=== PATIENT | female | born 1965 | race Caucasian/White ===

== ENCOUNTER 2017-08-24 11:01 | Emergency (ER) | payer OTHER ==
--- NOTE | 2017-08-24 11:41 | EDM.PDOC ---
ED HPI GENERAL MEDICAL PROBLEM - General Chief Complaint: Lower Extremity Injury/Pain Stated Complaint: FOOT INFECTED Time Seen by Provider: 08/24/17 11:30 Source of Information: Reports: Patient History Limitations: Reports: No Limitations - History of Present Illness INITIAL COMMENTS - FREE TEXT/NARRATIVE: This is a 52-year-old female that comes in for right foot pain after stepping on something sharp in the [place] last week. She did not see what the object was, did not pull anything out of the foot, she just knows it felt sharp. There are two main areas of pain/scabbing on the proximal 3rd and 4th toes. She is worried it may have been glass. She states that at first the symptoms weren't that bad but as the week went on there was a gradual worsening of redness, swelling, and pain that has now extended to the pads of the feet and top of the foot that make walking/bearing weight difficult. No purulent discharge per patient. Right now pain is 8/10. She reports nausea, fever, chills, tingling in the foot. Sensation in foot is still intact. No vomiting or other symptoms. She is up to date on her tetanus shot. She tried ice and ibuprofen at home without relief. She states she just finished metronidazole for bronchitis yesterday. No other symptoms as this time. Pt has history of Crohn's and HTN. PCP is Dr. Keny Bell. Treatments [employer]: Reports: NSAIDS Right Feet Pain Score (Numeric/FACES): 10 - Related Data Allergies Allergy/AdvReac Type Severity Reaction Status Date / Time meperidine [From Demerol] AdvReac Vomiting Verified 01/31/17 08:10 nabumetone [From Relafen] AdvReac Stomach Verified 01/31/17 08:10 Upset Home Meds: Home Meds Doxycycline [Vibramycin] 100 mg PO BID 10 Days #20 cap 08/24/17 [Rx] Hydrochlorothiazide 12.5 mg PO DAILY 08/24/17 [History] Isosorbide Mononitrate [Imdur] 60 mg PO DAILY 08/24/17 [History] Pantoprazole Sodium [Protonix] 40 mg PO DAILY 08/24/17 [History] Temazepam [Restoril] 15 mg PO DAILY 08/24/17 [History] Review of Systems - Review of Systems Review Of Systems: See Below Constitutional: Reports: Chills, Fever Eyes: Reports: No Symptoms Respiratory: Reports: Cough (recent bronchitis). Denies: Shortness of Breath, Wheezing Cardiovascular: Reports: No Symptoms. Denies: Chest Pain, Palpitations Musculoskeletal: Reports: Foot Pain (10/17) Skin: Reports: Erythema, Wound (plantar aspect of 3rd and 4th toes, 1/2 cm scabbing), Lesions (plantar aspect of 3rd and 4th toes, 1/2 cm scabbing) Neurological: Reports: Tingling (in right foot), Difficulty Walking (difficult to put weight on), Gait Disturbance. Denies: Numbness Psychiatric: Reports: No Symptoms ED EXAM, GENERAL - Physical Exam Exam: See Below Exam Limited By: No Limitations General Appearance: Alert, WD/WN, No Apparent Distress Head: Atraumatic, Normocephalic Respiratory/Chest: No Respiratory Distress, Lungs Clear, Normal Breath Sounds, No Accessory Muscle Use, Chest Non-Tender Cardiovascular: Normal Peripheral Pulses, Regular Rate, Rhythm, No Edema, No Gallop, No JVD, No Murmur, No Rub Peripheral Pulses: 3+: Posterior Tibial (L), Posterior Tibial (R), Dorsalis Pedis (L), Dorsalis Pedis (R) Extremities: No Pedal Edema, Normal Capillary Refill, Limited Range of Motion ( difficulty moving right toes), Increased Warmth (right top of foot and toes), Redness, Other (TTP right foot and 3rd and 5th toe, ) Neurological: Alert, Oriented, CN II-XII Intact, Normal Cognition, Normal Reflexes, No Motor/Sensory Deficits, Abnormal Gait Psychiatric: Normal Affect, Normal Mood Skin Exam: Warm, Dry, Erythema (from the wounds of the plantar aspect of the 3rd and 4th phalanges to the dorsal and plantar aspects of the feet), Increased Warmth, Wound/Incision (plantar aspect of the 3rd and 4th phalanges, 1/2 cm scabbing), Other (mild swelling) Course - Vital Signs Last Recorded V/S: Last Vital Signs Temp 98.2 F 08/24/17 11:09 Pulse 82 08/24/17 11:09 Resp 16 08/24/17 11:09 BP 145/98 H 08/24/17 11:09 Pulse Ox 99 08/24/17 11:09 - Orders/Labs/Meds Orders: Active Orders 24 hr Category Date Time Status Foot Comp Min 3V Rt [CR] Stat Exams 08/24/17 11:29 Taken Durable Medical Equipment for Discharge [DME for Oth 08/24/17 12:31 Ordered Discharge] [COMM] Stat Meds: Medications Discontinued Medications Generic Name Dose Route Start Last Admin Trade Name Rosi PRN Reason Stop Dose Admin Ondansetron HCl 4 mg 08/24/17 12:16 08/24/17 12:30 Zofran Odt PO 08/24/17 12:17 4 mg ONETIME ONE Administration - Re-Assessments/Exams Free Text/Narrative Re-Assessment/Exam: 08/24/17 12:00 Xray ordered to r/o foreign body Departure - Departure Time of Disposition: 12:20 Disposition: Home, Self-Care 01 Condition: Good Clinical Impression: Right foot infection, Puncture wound of right foot without foreign body - Discharge Information Prescriptions: Doxycycline [Vibramycin] 100 mg PO BID 10 Days #20 cap Instructions: Puncture Wound, [id number] Referrals: Inder Mars MD [Primary Care Provider] - Forms: ED Department Discharge Additional Instructions: Take Prescribed Doxycycline 100mg twice per day for 10 days for complete treatment. Do not take with milk- it may decrease the effectiveness. Keep area clean and dry, rest, over the counter ibuprofen for pain relief. Use crutches to help keep weight off of foot if causes pain to do so. If symptoms worsen or infection does not improve, return to ED. - My Orders Last 24 Hours: My Active Orders 08/24/17 11:29 Foot Comp Min 3V Rt [CR] Stat 08/24/17 12:31 Durable Medical Equipment for Discharge [DME for Discharge] [COMM] Stat - Assessment/Plan Last 24 Hours: My Active Orders 08/24/17 11:29 Foot Comp Min 3V Rt [CR] Stat 08/24/17 12:31 Durable Medical Equipment for Discharge [DME for Discharge] [COMM] Stat
[2017-08-24] MEDS ORDERED: Ondansetron 4 MG Tab.DIS PO ONE (12:16)
--- NOTE | 2017-08-25 08:26 | CR ---
Right foot: Four views of the right foot were obtained. Comparison: No previous exam. Joint spaces are preserved. No fracture, dislocation or other bony abnormality is seen. No opaque foreign object is seen. Impression: 1. No abnormality is appreciated on right foot exam. Diagnostic code #1
== END 2017-08-24 12:50 | disposition home or self-care (01) ==
LOC: JD.ED 11:01
DX: S91.134A Puncture wound without foreign body of right lesser toe(s) without damage to nail, initial encounter (principal); L08.9 Local infection of the skin and subcutaneous tissue, unspecified; W26.9XXA Contact with unspecified sharp object(s), initial encounter; Y92.828 Other wilderness area as the place of occurrence of the external cause; Z88.8 Allergy status to other drugs, medicaments and biological substances
CPT/HCPCS: 73630; 99283; A9270

== ENCOUNTER 2020-01-02 14:25 | Day surgery (SDC) | payer OTHER ==
--- NOTE | 2020-01-02 15:49 | EDM.PDOC ---
ED HPI GENERAL MEDICAL PROBLEM - General Chief Complaint: ENT Problem Stated Complaint: FB IN THROAT Time Seen by Provider: 01/02/20 14:39 Source of Information: Reports: Patient, RN Notes Reviewed History Limitations: Reports: No Limitations - History of Present Illness INITIAL COMMENTS - FREE TEXT/NARRATIVE: Patient is a 54-year-old female presenting to the emergency department with concerns that she could have an invisible line retainer lodged in her esophagus. He states that this morning she woke up and her lower retainer was missing. She has a feeling of a foreign body stuck in her esophagus near the level of the suprasternal notch. Her voice has been raspy since this morning as well. She has missing a number of teeth on the bottom, therefore her retainer is not a full size retainer. Is only approximately 1-1/2 to 2 inches long. She has a history of vocal cord dysplasia - Related Data Allergies Allergy/AdvReac Type Severity Reaction Status Date / Time meperidine [From Demerol] AdvReac Vomiting Verified 01/02/20 14:38 nabumetone [From Relafen] AdvReac Stomach Verified 01/02/20 14:38 Upset Home Meds: Home Meds Pantoprazole Sodium [Protonix] 40 mg PO DAILY 08/24/17 [History] hydroCHLOROthiazide [Hydrochlorothiazide] 25 mg PO DAILY 08/24/17 [History] Hydrocodone/Acetaminophen [Hydrocodone-Acetamin 5-325 mg] 1 each PO Q4HR PRN 01/02/20 [History] Propranolol HCl [Inderal Xl] 120 mg PO DAILY 01/02/20 [History] Past Medical History Cardiovascular History: Reports: Hypertension Gastrointestinal History: Reports: Diverticulosis, Other (See Below) Other Gastrointestinal History: crohns, gangrene - Past Surgical History HEENT Surgical History: Reports: Other (See Below) Other HEENT Surgeries/Procedures: Dysplasia of the Vocal Cords with surgeries GI Surgical History: Reports: Other (See Below) Other GI Surgeries/Procedures: Multiple abdominal surgeries due to Crohn's Social & Family History - Family History Family Medical History: Noncontributory - Tobacco Use Tobacco Use Status *Q: Current Every Day Tobacco User Years of Tobacco use: 20 Packs/Tins Daily: 1 - Caffeine Use Caffeine Use: Reports: None - Recreational Drug Use Recreational Drug Use: No ED ROS ENT - Review of Systems Review Of Systems: Comprehensive ROS is negative, except as noted in HPI. ED EXAM, ENT - Physical Exam Exam: See Below Exam Limited By: No Limitations General Appearance: Alert, WD/WN, No Apparent Distress Respiratory/Chest: No Respiratory Distress, Lungs Clear, Normal Breath Sounds, No Accessory Muscle Use, Chest Non-Tender Cardiovascular: Normal Peripheral Pulses, Regular Rate, Rhythm, No Edema, No Ga llop, No JVD, No Murmur, No Rub GI/Abdominal: Normal Bowel Sounds, Soft, Non-Tender, No Organomegaly, No Distention, No Abnormal Bruit, No Mass Neurological: Alert, Oriented, CN II-XII Intact, Normal Cognition, Normal Gait, Normal Reflexes, No Motor/Sensory Deficits Psychiatric: Normal Affect, Normal Mood Skin: Warm, Dry, Intact, Normal Color, No Rash Course - Vital Signs Last Recorded V/S: Last Vital Signs Temp 98.2 F 01/02/20 18:33 Pulse 67 01/02/20 18:33 Resp 19 01/02/20 18:33 BP 126/75 01/02/20 18:33 Pulse Ox 98 01/02/20 18:33 - Orders/Labs/Meds Labs: Laboratory Tests 01/02/20 01/02/20 Range/Units 15:55 15:55 SARS-CoV-2 RNA (NASEEM) Negative (NEGATIVE) SARS CoV-2 RNA Rapid NASEEM Negative (NEGATIVE) Meds: Medications Discontinued Medications Generic Name Dose Route Start Last Admin Trade Name Freq PRN Reason Stop Dose Admin Albuterol Confirm 01/02/20 17:10 Proventil Hfa Administered 01/02/20 17:11 Dose 6.7 gm INH .STK-MED ONE Albuterol 2.5 mg 01/02/20 17:50 Proventil Neb Soln NEB ONETIME PRN COPD Dexamethasone Confirm 01/02/20 16:29 Dexamethasone Administered 01/02/20 16:30 Dose 4 mg .ROUTE .STK-MED ONE Dexamethasone Confirm 01/02/20 16:31 Dexamethasone Administered 01/02/20 16:32 Dose 4 mg .ROUTE .STK-MED ONE Ephedrine Sulfate 5 mg 01/02/20 16:27 Ephedrine Sulfate IVPUSH ASDIRECTED PRN Hypotension Fentanyl 50 mcg 01/02/20 16:27 Sublimaze IVPUSH Q5M PRN Pain Glycopyrrolate Confirm 01/02/20 17:22 Robinul Administered 01/02/20 17:23 Dose 0.2 mg .ROUTE .STK-MED ONE Hydromorphone HCl Confirm 01/02/20 16:30 Dilaudid Administered 01/02/20 16:31 Dose 1 mg .ROUTE .STK-MED ONE Lidocaine HCl Confirm 01/02/20 16:29 Xylocaine-Mpf 1% Administered 01/02/20 16:30 Dose 4 mls @ as directed .ROUTE .STK-MED ONE Lactated Ringer's Confirm 01/02/20 16:29 Ringers, Lactated Administered 01/02/20 16:30 Dose 1,000 mls @ as directed .ROUTE .STK-MED ONE Midazolam HCl 2 mg 01/02/20 16:27 Versed 1 Mg/Ml IVPUSH ONETIME PRN Sedation Miscellaneous Medication 0 mg 01/02/20 16:27 Phenylephrine 1 Mg/10 Ml-Ns IVPUSH 01/02/20 16:28 ONETIME ONE Ondansetron HCl 4 mg 01/02/20 16:27 Zofran IVPUSH ONETIME PRN Nausea/Vomiting Propofol Confirm 01/02/20 16:30 Diprivan 20 Ml Administered 01/02/20 16:31 Dose 200 mg .ROUTE .STK-MED ONE - Re-Assessments/Exams Free Text/Narrative Re-Assessment/Exam: Patient is a 54-year-old female presenting to the emergency department with complaints of a sensation of a foreign body stuck in her throat. She states that when she woke this morning, she was missing her lower invisible line retainer. She looked throughout her bed and was not able to locate it. She is also had a raspy voice since this morning as well. Called and spoke with the general surgeon on-call, Dr. Russo. She recommended x-ray to see if we can visualize it, however it is unlikely since it is not radiopaque. I have ordered a soft tissue neck x-ray. Will speak with Dr. Russo once this is complete. 01/02/20 0891 X-ray of the soft tissue neck shows no obvious foreign body. Spoke with Dr. Russo. She will take the patient for endoscopy. Discussed this with patient she is agreement. OR crew will be called in. Departure - Departure Time of Disposition: 15:45 Disposition: DC/Tfer to [facility] Condition: Good Clinical Impression: Esophageal foreign body Qualifiers: Encounter type: initial encounter Qualified Code(s): T18.108A - Unspecified foreign body in esophagus causing other injury, initial encounter - Discharge Information Sepsis Event Note (ED) - Evaluation Sepsis Screening Result: No Definite Risk
--- NOTE | 2020-01-02 16:15 | PCM.PREANE ---
Preanesthetic Assessment - Procedure Proposed Procedure: EGD: Foreign body removal (Invisible line retainer) - Anesthesia/Transfusion/Family Hx Anesthesia History: Prior Anesthesia Without Reaction Family History of Anesthesia Reaction: No Transfusion History: No Prior Transfusion(s) Intubation History: Unknown - Review of Systems General: No Symptoms Pulmonary: No Symptoms (Dysplasia of vocal cords with history of surgeries.(Last surgery in October 2019) Smoker: 1ppd times 20 years) Cardiovascular: No Symptoms (HTN) Gastrointestinal: No Symptoms (GERD, history of crohn's disease) Neurological: Headache (Migraines) Other: Reports: None, Easy Bruising, Sinus Problem - Physical Assessment NPO Status Date: 01/02/20 NPO Status Time: 11:00 Vital Signs: Last Vital Signs Temp 36.6 C 01/02/20 14:35 Pulse 64 01/02/20 14:35 Resp 16 01/02/20 14:35 BP 128/98 H 01/02/20 14:35 Pulse Ox 98 01/02/20 14:35 Height: 1.68 m Weight: 61.235 kg ASA Class: 2E Mental Status: Alert & Oriented x3 Airway Class: Mallampati = 2 Dentition: Reports: Normal Dentition, [place](s), Missing Tooth/Teeth, Caries Thyro-Mental Finger Breadths: 3 Mouth Opening Finger Breadths: 3 ROM/Head Extension: Full Lungs: Clear to Auscultation, Normal Respiratory Effort Cardiovascular: Regular Rate, Regular Rhythm, No Murmurs - Lab Values: All labs reviewed and noted and within acceptable ranges to proceed with s cheduled procedure. - Imaging/EKG Impressions: EKG: SR rate=54, Probable left atrial enlargement, Minimal ST depression anterolateral leads - Allergies Allergies/Adverse Reactions: Allergies Allergy/AdvReac Type Severity Reaction Status Date / Time meperidine [From Demerol] AdvReac Vomiting Verified 01/02/20 14:38 nabumetone [From Relafen] AdvReac Stomach Verified 01/02/20 14:38 Upset - Anesthesia Plan Pre-Op Medication Ordered: Beta Jacob Beta Jacob: Propranolol Med Last Dose Date: 01/01/20 Med Last Dose Time: 22:30 - Acknowledgements Anesthesia Type Planned: General Anesthesia Pt an Appropriate Candidate for the Planned Anesthesia: Yes Alternatives and Risks of Anesthesia Discussed w Pt/Guardian: Yes Pt/Guardian Understands and Agrees with Anesthesia Plan: Yes PreAnesthesia Questionnaire Cardiovascular History: Reports: Hypertension Gastrointestinal History: Reports: Diverticulosis, Other (See Below) Other Gastrointestinal History: crohns, gangrene - Past Surgical History HEENT Surgical History: Reports: Other (See Below) Other HEENT Surgeries/Procedures: Dysplasia of the Vocal Cords with surgeries GI Surgical History: Reports: Other (See Below) Other GI Surgeries/Procedures: Multiple abdominal surgeries due to Crohn's - SUBSTANCE USE Tobacco Use Status *Q: Current Every Day Tobacco User Recreational Drug Use History: No - HOME MEDS Home Medications: Home Meds Pantoprazole Sodium [Protonix] 40 mg PO DAILY 08/24/17 [History] hydroCHLOROthiazide [Hydrochlorothiazide] 25 mg PO DAILY 08/24/17 [History] Hydrocodone/Acetaminophen [Hydrocodone-Acetamin 5-325 mg] 1 each PO Q4HR PRN 01/02/20 [History] Propranolol HCl [Inderal Xl] 120 mg PO DAILY 01/02/20 [History]
[2020-01-02] MEDS ORDERED: Midazolam 1 MG/ML 2 ML SDV IVPUSH PRN (16:27)
[2020-01-02] MEDS ORDERED: fentaNYL 100 MCG/2 ML SDV IVPUSH PRN (16:27)
[2020-01-02] MEDS ORDERED: Ondansetron 4 MG/2 ML SDV IVPUSH PRN (16:27)
[2020-01-02] MEDS ORDERED: ePHEDrine 50 MG/ML SDV IVPUSH PRN (16:27)
[2020-01-02] MEDS ORDERED: Lidocaine 1% 4 ML ONE (16:29)
[2020-01-02] MEDS ORDERED: Succinylcholine/Sod PF 100 MG/5 ML SYRINGE IV ONE (16:29)
[2020-01-02] MEDS ORDERED: Dexamethasone 4 MG/ML SDV ONE ×2 (16:29→16:31)
[2020-01-02] MEDS ORDERED: Lactated Ringers 1,000 ML ONE (16:29)
[2020-01-02] MEDS ORDERED: Propofol 200 MG/20 ML SDV ONE (16:30)
[2020-01-02] MEDS ORDERED: HYDROmorphone 1 MG/ML Syringe ONE (16:30)
--- NOTE | 2020-01-02 16:32 | PCM.HP.2 ---
H&P History of Present Illness - General Date of Service: 01/02/20 Source of Information: Patient, Provider History Limitations: Reports: No Limitations - History of Present Illness Initial Comments - Free Text/Narative: The patient is a 54 y/o lady who presents with globus sensation. She thinks she swallowed her dental retainer, which is approximately 5cm long and semicircular clear plastic. She reports placing it in her mouth last night, but it was gone this morning when she awoke. She has discomfort in the throat when she tries to swallow. She also has a raspy voice today. She has not had difficulty controlling and swallowing her secretions, and was able to eat a piece of lennon this morning. She denies any history of dysphagia. She previously has had treatments for vocal cord dysplasia. Neck x-ray was obtained and no foreign body was seen. - Related Data Allergies/Adverse Reactions: Allergies Allergy/AdvReac Type Severity Reaction Status Date / Time meperidine [From Demerol] AdvReac Vomiting Verified 01/02/20 14:38 nabumetone [From Relafen] AdvReac Stomach Verified 01/02/20 14:38 Upset Home Medications: Home Meds Pantoprazole Sodium [Protonix] 40 mg PO DAILY 08/24/17 [History] hydroCHLOROthiazide [Hydrochlorothiazide] 25 mg PO DAILY 08/24/17 [History] Hydrocodone/Acetaminophen [Hydrocodone-Acetamin 5-325 mg] 1 each PO Q4HR PRN 01/02/20 [History] Propranolol HCl [Inderal Xl] 120 mg PO DAILY 01/02/20 [History] Past Medical History Cardiovascular History: Reports: Hypertension Gastrointestinal History: Reports: Diverticulosis, Other (See Below) Other Gastrointestinal History: crohns, gangrene - Past Surgical History HEENT Surgical History: Reports: Other (See Below) Other HEENT Surgeries/Procedures: Dysplasia of the Vocal Cords with surgeries GI Surgical History: Reports: Other (See Below) Other GI Surgeries/Procedures: Multiple abdominal surgeries due to Crohn's Female Surgical History: Reports: Hysterectomy, Salpingo-Oophorectomy Social & Family History - Family History Cardiac: Denies: High Cholesterol, Hypertension, [place] Neurological: Denies: CVA Endocrine/Metabolic: Denies: Diabetes, type II Oncologic: Reports: Lung - Tobacco Use Tobacco Use Status *Q: Current Every Day Tobacco User Years of Tobacco use: 20 Packs/Tins Daily: 1 - Caffeine Use Caffeine Use: Reports: None - Recreational Drug Use Recreational Drug Use: No H&P Review of Systems - Review of Systems: Review Of Systems: See Below General: Reports: No Symptoms HEENT: Reports: Other (globus) Pulmonary: Reports: No Symptoms Cardiovascular: Reports: No Symptoms Gastrointestinal: Reports: No Symptoms Genitourinary: Reports: No Symptoms Musculoskeletal: Reports: No Symptoms Skin: Reports: No Symptoms Neurological: Reports: No Symptoms Hematologic/Lymphatic: Reports: No Symptoms Exam - Exam Exam: See Below - Vital Signs Vital Signs: Last Vital Signs Temp 36.6 C 01/02/20 14:35 Pulse 64 01/02/20 14:35 Resp 16 01/02/20 14:35 BP 128/98 H 01/02/20 14:35 Pulse Ox 98 01/02/20 14:35 Weight: 61.235 kg - Exam Quality Assessment: No: Supplemental Oxygen General: Alert, Oriented HEENT: Conjunctiva Clear, EOMI Neck: Supple Lungs: Normal Respiratory Effort Cardiovascular: Regular Rate, Regular Rhythm GI/Abdominal Exam: Soft, Non-Tender, No Distention Extremities: Normal Inspection, No Pedal Edema Peripheral Pulses: 2+: Dorsalis Pedis (L), Dorsalis Pedis (R) Skin: Warm, Dry, Intact Neurological: Cranial Nerves Intact Neuro Extensive - Mental Status: Normal Mood/Affect - Patient Data Lab Results Last 24 hrs: Laboratory Results - last 24 hr 01/02/20 Range/Units 15:55 SARS CoV-2 RNA Rapid NASEEM Negative (NEGATIVE) Sepsis Event Note - Evaluation Sepsis Screening Result: No Definite Risk - Focused Exam Vital Signs: Vital Signs Temp Pulse Resp BP Pulse Ox 01/02/20 14:35 36.6 C 64 16 128/98 H 98 *Q Meaningful Use (ADM) - VTE Risk Assess *Q Each Risk Factor Represents 1 Point: Age 41 - 59 years Total Score 1 Point Risk Factors: 1 - Problem List (1) Esophageal foreign body SNOMED Code(s): 79944262 ICD Code: T18.108A - UNSP FOREIGN BODY IN ESOPHAGUS CAUSING OTH INJURY, INIT Status: Acute Current Visit: Yes Problem List Initiated/Reviewed/Updated: Yes Orders Last 24hrs: Active Orders 24 hr Category Date Time Status EKG Documentation Completion [RC] STAT Care 01/02/20 16:15 Active Neck Soft Tissue [CR] Stat Exams 01/02/20 15:01 Taken CORONAVIRUS COVID-19 NASEEM [MOLEC] Routine Lab 01/02/20 15:55 Received Schedule Procedure [COMM] Stat Oth 01/02/20 16:22 Ordered Assessment/Plan Comment:: 54 y/o lady who presents with globus sensation and possible foreign body in the esophagus. - will proceed with EGD and possible intervention. Discussed possibility of not finding the object, and also the risk of perforation. Her written consent was obtained - NPO - COVID test completed Sadia Colon MD General surgery - Mortality Measure Prognosis:: Good
[2020-01-02] MEDS ORDERED: Albuterol 6.7 GM Inhaler INH ONE (17:10)
[2020-01-02] MEDS ORDERED: Glycopyrrolate 0.2 MG/ML SDV ONE (17:22)
--- NOTE | 2020-01-02 17:41 | PCM.OPNOTE ---
- General Post-Op/Procedure Note Date of Surgery/Procedure: 01/02/20 Operative Procedure(s): EGD Findings: 1. No foreign body 2. Irregular GE 3. Gastritis 4. Hiatal hernia 5. Duodenitis Pre Op Diagnosis: Globus with esophageal foreign body Post-Op Diagnosis: Globus Anesthesia Technique: General ET Tube Primary Surgeon: Sadia Colon Anesthesia Provider: Saadia Hunt Pathology: 1. Antral biopsy 2. GE junction biopsy Fluid Replacement, Intraop: 500 Complications: None apparent Condition: Good
--- NOTE | 2020-01-02 17:46 | PCM.PRNOTE ---
- Free Text/Narrative Note: Operative Report Date of procedure: January 02, 2020 Preoperative diagnosis: Globus with esophageal foreign body Postoperative diagnosis: Globus Surgeon: Sadia Colon M.D. Procedure: EGD Anesthesia: General ET Ash Handler: Saadia Hunt CRNA IV fluids: 500mL Estimated blood loss: 0 mL Findings: 1. No foreign body 2. Irregular GE 3. Gastritis 4. Hiatal hernia 5. Duodenitis Specimens: 1. Antral biopsy 2. GE junction biopsies Indication: The patient is a 54 -year-old lady who presented with globus sensation and fear that she had swallowed her dental retainer. The patient's main complaint was the globus sensation and discomfort with swallowing. The patient was consented for an EGD with intervention. Risk of bleeding and perforation were discussed. The patient's consent was obtained Description of the procedure: The patient was taken to the endoscopy suite and placed on hemodynamic monitoring. The nurse batch mixer operator induced General anesthesia and she was intubated without difficulty. A bite block was placed. The patient was positioned in the left lateral decubitus position. A timeout was performed. The endoscope was gently placed into the mouth to the back of the pharynx and introduced into the esophagus. The scope was gently advanced under direct visualization down to the level of the lower esophageal sphincter. The stomach was then entered. Normal rugal folds were noted. The scope was advanced into the antrum. We noted linear and patchy erythema in the antrum and patchy erythema with friability in the body of the stomach. The pylorus was then entered and the first and second portion of the duodenum was inspected. We did note some duodenitis in the bulb of the duodenum. There were no ulcerations in the duodenum. We did find patchy erythema and superficial erosion in the duodenal bulb. The scope was withdrawn to the antrum and biopsies were taken with a cold biopsy forceps for H. pylori. The scope was then retroflexed in the cardia and fundus were investigated. There appeared to be a large hiatal hernia. No other abnormalities were noted. The scope was then withdrawn while inspecting the esophagus. There was a very irregular GE junction with 2-3 tongues of salmon colored mucosa extending 1-2cm into the esophagus. There was one 4mm squamous island noted. The GE junction was biopsied in four quadrants with a cold biopsy forceps. The esophagus was inspected during withdrawal and there was no erythema or evidence of foreign body. The procedure was terminated. the patient tolerated the procedure well without any evidence of complications. She was extubated and transported to PACU in stable position Sadia Colon MD General Surgery
[2020-01-02] MEDS ORDERED: Albuterol 0.083% 2.5 MG/3 ML Neb Soln NEB PRN (17:50)
--- NOTE | 2020-01-02 17:50 | PCM.POSTAN ---
POST ANESTHESIA ASSESSMENT - MENTAL STATUS Mental Status: Alert - VITAL SIGNS Vital Signs: Last Vital Signs Temp 36.8 C 01/02/20 17:39 Pulse 79 01/02/20 17:39 Resp 14 01/02/20 17:39 BP 113/48 L 01/02/20 17:39 Pulse Ox 98 01/02/20 17:39 - RESPIRATORY Respiratory Status: Respiratory Rate WNL, Airway Patent, O2 Saturation Stable, Supplemental Oxygen - CARDIOVASCULAR CV Status: Pulse Rate WNL, Blood Pressure Stable - GASTROINTESTINAL GI Status: No Symptoms - POST OP HYDRATION Hydration Status: Adequate & Stable
--- NOTE | 2020-01-02 17:53 | PCM48HPAN ---
Post Anesthesia Note - EVALUATION WITHIN 48HRS OF ANESTHETIC Vital Signs in Normal Range: Yes Patient Participated in Evaluation: Yes Respiratory Function Stable: Yes Airway Patent: Yes Cardiovascular Function Stable: Yes Hydration Status Stable: Yes Pain Control Satisfactory: Yes Nausea and Vomiting Control Satisfactory: Yes Mental Status Recovered: Yes Vital Signs: Last Vital Signs Temp 36.8 C 01/02/20 17:39 Pulse 79 01/02/20 17:39 Resp 14 01/02/20 17:39 BP 113/48 L 01/02/20 17:39 Pulse Ox 100 01/02/20 17:51
--- NOTE | 2020-01-06 13:23 | CR ---
PROCEDURE INFORMATION: Exam: XR Soft Tissue Neck Exam date and time: 01/02/2020 3:15 PM Age: 54 years old Clinical indication: Pain; Other: Posisble foreign body in throat; Patient HX: Invisaline stuck in throat? TECHNIQUE: Imaging protocol: XR of the soft tissues of the neck. COMPARISON: No relevant prior studies available. FINDINGS: Airway: Normal. No abnormal narrowing. Soft tissues: Normal. Normal epiglottis. Bones/joints: Unremarkable. Other: No definite radiopaque foreign body identified. IMPRESSION: No acute findings. Thank you for allowing us to participate in the care of your patient. Dictated and Authenticated by: Arash Lemus MD 01/02/2020 4:34 PM Central Time ([place] & [place]) [email or web address]
== END 2020-01-02 18:45 | disposition home or self-care (01) ==
LOC: JD.ED 14:25 → JD.SDS 16:32
PROVIDERS: ATTEND Surgery
DX: K31.89 Other diseases of stomach and duodenum (principal); K29.90 Gastroduodenitis, unspecified, without bleeding; K20.90 Esophagitis, unspecified without bleeding; K44.9 Diaphragmatic hernia without obstruction or gangrene; T18.108A Unspecified foreign body in esophagus causing other injury, initial encounter; I10 Essential (primary) hypertension; E78.00 Pure hypercholesterolemia, unspecified; I25.2 Old myocardial infarction; F17.210 Nicotine dependence, cigarettes, uncomplicated; Z01.812 Encounter for preprocedural laboratory examination; Z20.828 Contact with and (suspected) exposure to other viral communicable diseases; Z88.8 Allergy status to other drugs, medicaments and biological substances; Z79.899 Other long term (current) drug therapy
CPT/HCPCS: 43239; 70360; 87635; 93005; A9270; J0330; J1100; J1170; J2001; J2704; J3490; J7120; 00731; U0002